=== PATIENT | male | born 1970 | race Caucasian/White ===

== ENCOUNTER 2017-08-01 00:50 | Emergency (ER) | payer OTHER ==
[~2017-08-01] VITALS: Ht 177.8 cm; Wt 90.7 kg
[2017-08-01] MEDS ORDERED: PENICILLIN G BENZATHINE LA 1.2 MU TBX IM STA (01:07)
== END 2017-08-01 01:45 | disposition home or self-care (01) ==
LOC: ER 00:50
DX: R50.9 Fever, unspecified (principal); K08.9 Disorder of teeth and supporting structures, unspecified; K04.7 Periapical abscess without sinus
CPT/HCPCS: 96372; 99282; J0561